=== PATIENT | female | born 1985 | race Two or more races ===

== ENCOUNTER 2019-01-17 22:07 | Emergency (ER) | payer MEDICAID ==
[~2019-01-17] VITALS: Ht 149.9 cm; Wt 77.6 kg
--- NOTE | 2019-01-17 23:45 | NUR ---
Heart Tones heart tones obtained via doppler for one minute at a rate of 150's.
[2019-01-17 23:49] VITALS: BP 97/59
== END 2019-01-18 00:51 ==
LOC: ER 22:16
DX: Z00.00 Encounter for general adult medical examination without abnormal findings (principal); O26.893 Other specified pregnancy related conditions, third trimester; Z3A.32 32 weeks gestation of pregnancy

== ENCOUNTER 2021-03-10 16:18 | Emergency (ER) | payer MEDICAID ==
[~2021-03-10] VITALS: Ht 149.9 cm; Wt 69.4 kg
[2021-03-10 16:20] VITALS: BP 134/86
== END 2021-03-10 17:37 | disposition left against medical advice (07) ==
LOC: ER 16:18
DX: R51.9 Headache, unspecified (principal); R42 Dizziness and giddiness; Z53.21 Procedure and treatment not carried out due to patient leaving prior to being seen by health care provider